=== PATIENT | male | born 1985 | race Caucasian/White ===

== ENCOUNTER → 2016-09-12 | Outpatient (CLI) | payer BC, OTHER ==
[~2016-09-12] MED LIST: COLACE 100MG C100 MG PO; LISINOPRIL-HCT1 EAC2 PO; NORCO 7.5-3251 EACH PO; NORVASC 5 MG TAB5 MG PO; OMEPRAZOLE20 MG PO; SIMVASTATIN20 MG PO
== END ==
LOC: RT 12:54
DX: J45.909 Unspecified asthma, uncomplicated (principal)
CPT/HCPCS: 94010

== ENCOUNTER 2016-09-27 | Emergency (ER) | payer BC, OTHER ==
[2016-09-27 05:36] LABS: HEMOGLOBIN 13.3 gm/dl (14.0-17.5); RED BLOOD COUNT 5.14 M/UL (4.20-5.50); WHITE BLOOD COUNT 7.6 K/UL (4.5-11.0)
[2016-09-27 05:50] LABS: BUN/CREATININE RATIO 24 (0-10)
[2016-09-27] MEDS ORDERED: LISINOPRIL-HCT1 EAC2 PO (07:07)
[2016-09-27] MEDS ORDERED: SIMVASTATIN20 MG PO (07:07)
[2016-09-27] MEDS ORDERED: NORVASC 5 MG TAB5 MG PO (07:08)
[2016-09-27] MEDS ORDERED: OMEPRAZOLE20 MG PO (07:08)
[2016-10-09] MEDS ORDERED: NORCO 7.5-3251 EACH PO (13:13)
[2016-10-09] MEDS ORDERED: COLACE 100MG C100 MG PO (13:13)
== END 2016-09-27 06:17 | disposition home or self-care (01) ==
LOC: ER1
PROVIDERS: Physician Assistant
DX: R10.84 Generalized abdominal pain (principal); R11.0 Nausea; I10 Essential (primary) hypertension; E78.5 Hyperlipidemia, unspecified; K21.9 Gastro-esophageal reflux disease without esophagitis; Z79.899 Other long term (current) drug therapy
CPT/HCPCS: 36415; 80053; 81001; 83690; 85025; 99284

== ENCOUNTER → 2016-09-27 | Day surgery (SDC) | payer BC, OTHER | END | disposition home or self-care (01) | LOC: OR 06:23 | PROVIDERS: Internal Medicine Gastroenterology | PROC: 0DB78ZX Excision of Stomach, Pylorus, Via Natural or Artificial Opening Endoscopic, Diagnostic (ICD-10-PCS; principal; 2016-09-27 10:15) | DX: K29.50 Unspecified chronic gastritis without bleeding (principal); K21.0 Gastro-esophageal reflux disease with esophagitis; K25.9 Gastric ulcer, unspecified as acute or chronic, without hemorrhage or perforation; K29.80 Duodenitis without bleeding; I10 Essential (primary) hypertension; G47.30 Sleep apnea, unspecified; E66.9 Obesity, unspecified; Z68.42 Body mass index [BMI] 45.0-49.9, adult; Z79.899 Other long term (current) drug therapy | CPT/HCPCS: J2250; J3010; J7030 ==

== ENCOUNTER → 2016-12-24 | Outpatient (CLI) | payer BC | LOC: KOH-I 09:36 | DX: R10.9 Unspecified abdominal pain (principal); K76.0 Fatty (change of) liver, not elsewhere classified | CPT/HCPCS: 76705 ==

== ENCOUNTER → 2020-07-13 | Outpatient (CLI) | payer BC, SELFPAY, OTHER ==
[~2020-07-13] MED LIST changes: +LISINOPRIL-HCT1 EACH PO; +RANITIDINE HCL150 M1 PO
== END ==
LOC: US 06-30 10:30
DX: R10.12 Left upper quadrant pain (principal)
CPT/HCPCS: 76705

== ENCOUNTER → 2021-06-07 | Outpatient (CLI) | payer OTHER | LOC: KOH-I 09:30 | DX: K76.0 Fatty (change of) liver, not elsewhere classified (principal) | CPT/HCPCS: 76700 ==